=== PATIENT | female | born 1960 | race Caucasian/White ===

== ENCOUNTER 2017-10-09 17:11 | Emergency (ER) | payer OTHER ==
[~2017-10-09] VITALS: Ht 170.2 cm; Wt 65.3 kg
[~2017-10-09 17:11] MED LIST: ADVIL LIQUI-GE200 MG PO; BACLOFEN10 MG PO; CLONAZEPAM0.5 MG PO; CYMBALTA60 MG PO; LANTUS 3 M100 UNITS1 SC; LEVOFLOXACIN750 MG PO; LO-DOSE ASPIRIN81 M1 PO; METFORMIN HCL1000 MG PO; RANITIDINE HCL150 MG PO; VENTOLIN HFA18 GM IH; XALATAN2.5 ML BOTH EYES; ZESTRIL10 MG PO; ZITHROMAX Z-PA250 MG PO; ZYRTEC10 M2 PO
[2017-10-09 18:22] LABS: ALBUMIN 4.6 g/dL (3.2-4.8); CHLORIDE 105 mEq/L (99-109); POTASSIUM 5.1 mEq/L (3.7-5.4); SODIUM 140 mEq/L (136-147)
[2017-10-09 18:24] LABS: HEMATOCRIT 51.1 % (36.0-46.0); HEMOGLOBIN 17.6 G/DL (11.9-15.5); MCH 29.4 PG (29.0-34.0); MCHC 34.4 G/DL (30.0-36.0); MCV 85.5 FL (83-99); PLATELET COUNT 399 K/uL (156-360); RBC DIS.WIDTH-CV 11.9 % (11.8-14.6); RBC DIS.WIDTH-SD 37.2 % (39-53); RED BLOOD COUNT 5.98 M/uL (3.80-5.20); WHITE BLOOD COUNT 9.4 K/uL (4.1-10.2)
[2017-10-09 18:25] LABS: GLUCOSE 173 mg/dL (70-99); TOTAL PROTEIN 8.2 g/dL (6.4-8.3)
[2017-10-09 18:27] LABS: TOTAL BILIRUBIN 0.7 mg/dL (0.0-1.0)
[2017-10-09 18:28] LABS: ALKALINE PHOSPHATASE 106 IU/L (3-129); CREATININE 1.4 mg/dL (0.6-1.3); GFR ESTIMATE (CALCULATED) 42 mL/min/
[2017-10-09 18:29] LABS: UREA NITROGEN (BUN) 26 mg/dL (9-23)
[2017-10-09 18:30] LABS: AST (GOT) 39 IU/L (2-34)
[2017-10-09 18:31] LABS: ALT (GPT) 57 IU/L (3-49)
[2017-10-09 20:08] LABS: FERRITIN 209 NG/ML (10-291)
[2017-10-09 21:25] LABS: APPEARANCE SL.HAZY ((CLEAR)); BILIRUBIN SMALL; BLOOD NEGATIVE; GLUCOSE (STRIP) NEGATIVE; KETONES NEGATIVE; LEUKOCYTES NEGATIVE; NITRITE NEGATIVE; PROTEIN (STRIP) 100; SPECIFIC GRAVITY 1.027 (1.000-1.030); UROBILINOGEN 0.2 MG/DL (0.2-1.0)
[2017-10-09 21:30] LABS: BACTERIA NONE SEEN /HPF; EPITHELIAL CELLS RARE /HPF; HYALINE CASTS 0-5 /LPF; MUCUS 1+ /LPF; RED BLOOD CELLS 0-5 /HPF (0-5); UCUL ADDED? YES
[2017-10-09 21:33] LABS: COLOR DK YELLOW ((YELLOW))
[2017-10-09 21:38] VITALS: BP 102/81
[2017-10-09] MEDS ORDERED: REGLAN10 MG PO (21:39)
== END 2017-10-09 21:45 | disposition home or self-care (01) ==
LOC: EME 17:11
PROVIDERS: Nurse Practitioner Family
DX: R11.2 Nausea with vomiting, unspecified (principal); R19.7 Diarrhea, unspecified; E86.0 Dehydration; N17.9 Acute kidney failure, unspecified; R42 Dizziness and giddiness; E83.119 Hemochromatosis, unspecified; I10 Essential (primary) hypertension; E11.9 Type 2 diabetes mellitus without complications; Z79.4 Long term (current) use of insulin; Z79.82 Long term (current) use of aspirin; Z90.49 Acquired absence of other specified parts of digestive tract
CPT/HCPCS: 80053; 81003; 82728; 85027; 87086; 99281; 99284; J2765; J7030